=== PATIENT | male | born 1980 | race Caucasian/White ===

== ENCOUNTER 2017-08-06 15:07 | Emergency (ER) | payer OTHER ==
--- NOTE | 2017-08-06 16:16 | ER Document Report ---
ED Medical Screen (RME) - General Chief Complaint: Back Pain Stated Complaint: BACK PAIN Time Seen by Provider: 08/06/17 15:20 Mode of Arrival: Wheelchair Information source: Patient Notes: 36-year-old male history of low back pain presents with complaints of urinary incontinence on . Patient notes he was rolling over in bed felt a few popping sensations in his back and then urinated on himself. Patient denies any other such symptoms complaints Patient sent in by [facility] for evaluation I have greeted and performed a rapid initial assessment of this patient. A comprehensive ED assessment and evaluation of the patient, analysis of test results and completion of the medical decision making process will be conducted by additional ED providers. PHYSICAL EXAMINATION: GENERAL: Well-appearing, well-nourished and in no acute distress. HEAD: Atraumatic, normocephalic. EYES: Pupils equal round extraocular movements intact, conjunctiva are normal. ENT: Nares patent NECK: Normal range of motion LUNGS: No respiratory distress Musculoskeletal: Normal range of motion NEUROLOGICAL: Normal speech, normal gait. PSYCH: Normal mood, normal affect. SKIN: Warm, Dry, normal turgor, no rashes or lesions noted. TRAVEL OUTSIDE OF THE [place] IN LAST 30 DAYS: No - Related Data Allergies/Adverse Reactions: No Known Allergies Allergy (Unverified 08/06/17 15:14) Past Medical History - Social History Frequency of alcohol use: 2 beer/week Drug Abuse: None Renal/ Medical History: Denies: Hx Peritoneal Dialysis Physical Exam - Vital signs Vitals: Temp Pulse Resp BP Pulse Ox 98.1 F 77 20 114/72 97 08/06/17 15:15 08/06/17 15:15 08/06/17 15:15 08/06/17 15:15 08/06/17 15:15 Course - Vital Signs Vital signs: Temp Pulse Resp BP Pulse Ox 98.1 F 77 20 114/72 97 08/06/17 15:15 08/06/17 15:15 08/06/17 15:15 08/06/17 15:15 08/06/17 15:15
--- NOTE | 2017-08-06 17:05 | RADIOLOGY REPORT (SQ) ---
EXAM DESCRIPTION: MRI LUMBAR SPINE WITHOUT COMPLETED DATE/TIME: 08/06/2017 4:44 pm REASON FOR STUDY: urinary incontinence, back pain COMPARISON: None. TECHNIQUE: Sagittal and Axial imaging includes T1, T2, STIR and gradient echo sequences. Coronal T2/ HASTE imaging. LIMITATIONS: Interpretation was performed in the absence of comparison radiographs. FINDINGS: VISUALIZED UPPER ABDOMEN: Limited evaluation. No acute or suspicious findings suggested. SEGMENTATION: No transitional anatomy. The lowest well-developed disc space is labeled L5-S1. ALIGNMENT: Anatomic. VERTEBRAE: Intact. BONE MARROW: Normal. No marrow replacement or reactive changes. DISC SIGNAL: Trace disc desiccation and loss of height is seen at the L4/5 level. The remaining inte rvertebral disc heights and signal are normal. POSTERIOR ELEMENTS: Generally intact. No pars defect evident. HARDWARE: None in the spine. CORD AND CONUS: Normal in size and signal intensity. Conus at the appropriate level. SOFT TISSUES: No aortic aneurysm seen. No bulky retroperitoneal adenopathy or mass. No paraspinal mas s or fluid. L1-L2: No significant spinal stenosis or exit foraminal stenosis. L2-L3: No significant spinal stenosis or exit foraminal stenosis. L3-L4: No significant spinal stenosis or exit foraminal stenosis. L4-L5: Trace broad-based posterior disc bulge asymmetric to the left resulting mild left neural mihir inal narrowing without demonstrated nerve root contact. Concomitant mild facet arthropathy at this l evel. The central canal and right neural foramen remain widely patent. L5-S1: No significant spinal stenosis or exit foraminal stenosis. LOWER THORACIC: Incompletely imaged. No stenosis seen. SACRUM: Visualized upper sacrum intact. OTHER: No other significant findings. IMPRESSION: Mild L4/5 spondylotic change without demonstrated nerve root contact. TECHNICAL DOCUMENTATION: JOB ID: [id number] [employer]- All Rights Reserved Reading location - IP/workstation name: [employer]
[2017-08-06] MEDS ORDERED: KETOROLAC TROMETHAMINE 60 MG/2 ML SDV IM ONE (17:51)
--- NOTE | 2017-08-06 17:54 | ER Document Report ---
ED General Pain - General Chief Complaint: Back Pain Stated Complaint: BACK PAIN Time Seen by Provider: 08/06/17 15:20 Mode of Arrival: Wheelchair Notes: 36-year-old male. History of low back pain. Followed by the [facility]. Began having worsening low back pain. Had difficulty urinating and then urinary incontinence. No bowel incontinence. No numbness of the lower extremities. Was sent here for possible cauda equina and evaluation for possible MRI today. Denies any fever, chills, sweats. Denies any other issues at this time. TRAVEL OUTSIDE OF THE [place] IN LAST 30 DAYS: No - HPI Onset/Duration: Gradual, Worse - Related Data Allergies/Adverse Reactions: No Known Allergies Allergy (Unverified 08/06/17 15:14) Past Medical History - General Information source: Patient - Social History Smoking Status: Never Smoker Frequency of alcohol use: 2 beer/week Drug Abuse: None Lives with: Spouse/Significant other Family History: Reviewed & Not Pertinent Patient has suicidal ideation: No Patient has homicidal ideation: No Renal/ Medical History: Denies: Hx Peritoneal Dialysis Review of Systems - Review of Systems Constitutional: No symptoms reported EENT: No symptoms reported Cardiovascular: No symptoms reported Respiratory: No symptoms reported Gastrointestinal: No symptoms reported Genitourinary: No symptoms reported Male Genitourinary: No symptoms reported Musculoskeletal: Back pain. denies: Joint pain, Joint swelling, Muscle pain, Muscle stiffness Skin: No symptoms reported Hematologic/Lymphatic: No symptoms reported Neurological/Psychological: No symptoms reported. denies: Confusion, Weakness, Lost consciousness, Numbness Physical Exam - Vital signs Vitals: Temp Pulse Resp BP Pulse Ox 98.1 F 77 20 114/72 97 08/06/17 15:15 08/06/17 15:15 08/06/17 15:15 08/06/17 15:15 08/06/17 15:15 Interpretation: Normal - General General appearance: Appears well, Alert - HEENT Head: Normocephalic, Atraumatic Eyes: Normal Pupils: PERRL - Respiratory Respiratory status: No respiratory distress Chest status: Nontender Breath sounds: Normal Chest palpation: Normal - Cardiovascular Rhythm: Regular Heart sounds: Normal auscultation Murmur: No - Abdominal Inspection: Normal Distension: No distension Bowel sounds: Normal Tenderness: Nontender Organomegaly: No organomegaly - Rectal Tenderness: No Notes: Sensation intact, tone intact - Back Back: Normal, Nontender - Extremities General upper extremity: Normal inspection, Nontender, Normal color, Normal ROM , Normal temperature General lower extremity: Normal inspection, Nontender, Normal color, Normal ROM , Normal temperature, Normal weight bearing. No: Hong's sign Notes: Mild straight leg raise on the right - Neurological Neuro grossly intact: Yes Cognition: Normal Orientation: AAOx4 Corona Coma Scale Eye Opening: Spontaneous Corona Coma Scale Verbal: Oriented Corona Coma Scale Motor: Obeys Commands Corona Coma Scale Total: 15 Speech: Normal Motor strength normal: LUE, RUE, LLE, RLE Sensory: Normal - Psychological Associated symptoms: Normal affect, Normal mood - Skin Skin Temperature: Warm Skin Moisture: Dry Skin Color: Normal Course - Re-evaluation Re-evalutation: 08/06/17 17:51 Lumbar Spine MRI 08/06/17 15:21 IMPRESSION: Mild L4/5 spondylotic change without demonstrated nerve root contact. Patient does not have any evidence on physical exam or MRI of cauda equina syndrome. Has good sensation perirectally and normal rectal tone. We will give him information in regards to follow-up. Patient will need to be seen more likely by technical training specialist for pain management. We will provide referral. - Vital Signs Vital signs: Temp Pulse Resp BP Pulse Ox 99.0 F 59 L 20 120/76 99 08/06/17 18:35 08/06/17 18:35 08/06/17 15:15 08/06/17 18:35 08/06/17 18:35 Discharge - Discharge Clinical Impression: Low back pain Qualifiers: Chronicity: acute Back pain laterality: unspecified Sciatica presence: with sciatica Sciatica laterality: sciatica of right side Qualified Code(s): M54.41 - Lumbago with sciatica, right side Condition: Stable Disposition: HOME, SELF-CARE Instructions: Low Back Pain ([facility]) Referrals: KIM GRIFFIN MD [ASSOCIATE] - Follow up in 1 week Tucker Valencia [Other] - Follow up in 3-5 days
[2017-08-06 18:37] VITALS: BP 120/76
== END 2017-08-06 18:48 | disposition home or self-care (01) ==
LOC: ER 15:07
DX: M54.41 Lumbago with sciatica, right side (principal); R32 Unspecified urinary incontinence
CPT/HCPCS: 99283; 96372; 72148; J1885

== ENCOUNTER 2017-12-23 15:38 | Emergency (ER) | payer OTHER ==
[2017-12-23 15:49] VITALS: BP 110/75
[2017-12-23] MEDS ORDERED: FENTANYL CITRATE INJ/PF 100 MCG/2 ML AMPUL IM ONE ×2 (16:23→18:23)
[2017-12-23] MEDS ORDERED: PROMETHAZINE HCL INJ 50 MG/1 ML VIAL IM PRN (16:24)
--- NOTE | 2017-12-23 16:27 | ER Document Report ---
ED Headache - General Chief Complaint: Headache >24 hrs old Stated Complaint: HEADACHE Time Seen by Provider: 12/23/17 16:23 Mode of Arrival: Ambulatory Information source: Patient Notes: Chief complaint: Headache History of complain:( obtained from----patient) 37 years old male with a history of migraine headache presents today with another onset of headache since yesterday has taken Imitrex total of 4 tablets without improvement. Associated with nausea no vomiting. No focal weakness numbness tingling sensation. Had photophobia. Onset: As above Duration: 2 days Severity: Moderate to severe Quality: Sharp Context: History of migraine Exacerbating factor and relieving factors: Light REVIEW OF SYSTEMS: CONSTITUTIONAL : Denies fever, chills, or sweats. Denies recent illness. EENT: Denies eye, ear, throat, or mouth pain or symptoms. Denies nasal or sinus congestion or discharge. Denies throat, tongue, or mouth swelling or difficulty swallowing. CARDIOVASCULAR: Denies chest pain. Denies palpitations or racing or irregular heart beat. Denies ankle edema. RESPIRATORY: Denies cough, cold, or chest congestion. Denies shortness of breath, difficulty breathing, or wheezing. GASTROINTESTINAL: Denies distention. Denies nausea, vomiting, or diarrhea. Denies blood in vomitus, stools, or per rectum. Denies black, tarry stools. Denies constipation. GENITOURINARY: Denies difficulty urinating, painful urination, burning, frequency, blood in urine, or discharge. FEMALE GENITOURINARY: Denies vaginal bleeding, heavy or abnormal periods, irregular periods. Denies vaginal discharge or odor. MUSCULOSKELETAL: Denies back or neck pain or stiffness. Denies joint pain or swelling. SKIN: Denies rash, lesions or sores. HEMATOLOGIC : Denies easy bruising or bleeding. LYMPHATIC: Denies swollen, enlarged glands. NEUROLOGICAL: Denies confusion or altered mental status. Denies passing out or loss of consciousness. Denies dizziness or lightheadedness. Denies headache. Denies weakness or paralysis or loss of use of either side. Denies problems with gait or speech. Denies sensory loss, numbness, or tingling. Denies seizures. PSYCHIATRIC: Denies anxiety or stress. Denies depression, suicidal ideation, or homicidal ideation. ALL OTHER SYSTEMS REVIEWED AND NEGATIVE. PHYSICAL EXAMINATION: GENERAL: Well-appearing, well-nourished and in no acute distress. HEAD: Atraumatic, normocephalic. EYES: Pupils equal round and reactive to light, extraocular movements intact, conjunctiva are normal. ENT: Nares patent, oropharynx clear without exudates. Moist mucous membranes. NECK: Normal range of motion, supple without lymphadenopathy LUNGS: Breath sounds clear to auscultation bilaterally and equal. No wheezes rales or rhonchi. HEART: Regular rate and rhythm without murmurs ABDOMEN: Soft, nontender, nondistended abdomen. No guarding, no rebound. No masses appreciated. Examination of genitals-deferred Musculoskeletal: Normal range of motion, no pitting or edema. No cyanosis. NEUROLOGICAL: Cranial nerves grossly intact. Normal speech, normal gait. Normal sensory, motor exams PSYCH: Normal mood, normal affect. SKIN: Warm, Dry, normal turgor, no rashes or lesions noted. Dictation was performed using [employer] voice recognition software TRAVEL OUTSIDE OF THE [place] IN LAST 30 DAYS: No - HPI Patient complains to provider of: "Migraine" Notes: Dictated - Related Data Allergies/Adverse Reactions: No Known Allergies Allergy (Unverified 08/06/17 15:14) Past Medical History - Social History Smoking Status: Current Every Day Smoker Frequency of alcohol use: None Drug Abuse: None Lives with: Family Family History: Reviewed & Not Pertinent Patient has suicidal ideation: No Patient has homicidal ideation: No Renal/ Medical History: Denies: Hx Peritoneal Dialysis Review of Systems - Review of Systems Notes: Dictated Physical Exam - Vital signs Vitals: Temp Pulse Resp BP Pulse Ox 98.3 F 63 18 110/75 98 12/23/17 15:48 12/23/17 15:48 12/23/17 15:48 12/23/17 15:48 12/23/17 15:48 - Notes Notes: Dictated Course - Re-evaluation Re-evalutation: 12/23/17 16:26 Given fentanyl and promethazine - Vital Signs Vital signs: Temp Pulse Resp BP Pulse Ox 98.3 F 63 18 110/75 98 12/23/17 15:48 12/23/17 15:48 12/23/17 15:48 12/23/17 15:48 12/23/17 15:48 Discharge - Discharge Clinical Impression: Migraine headache Qualifiers: Migraine type: with aura Status migrainosus presence: without status migrainosus Intractability: not intractable Qualified Code(s): G43.109 - Migraine with aura, not intractable, without status migrainosus Disposition: HOME, SELF-CARE Instructions: Headache ([facility])
[2017-12-23] MEDS ORDERED: PROCHLORPERAZINE EDISYLATE INJ 10 MG/2 ML VIAL IM ONE (18:52)
== END 2017-12-23 19:07 | disposition home or self-care (01) ==
LOC: ER 15:38
DX: G43.109 Migraine with aura, not intractable, without status migrainosus (principal); F17.200 Nicotine dependence, unspecified, uncomplicated
CPT/HCPCS: 99283; 96372; J3010; J0780

== ENCOUNTER 2018-07-10 13:37 | Emergency (ER) | payer OTHER ==
[2018-07-10] MEDS ORDERED: IBUPROFEN 800 MG TABLET PO ONE (14:54)
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
[2018-07-10 16:04] VITALS: BP 134/79
== END 2018-07-10 16:02 | disposition home or self-care (01) ==
LOC: ER 13:37
DX: M54.5 Low back pain (principal); M12.88 Other specific arthropathies, not elsewhere classified, other specified site; V89.2XXA Person injured in unspecified motor-vehicle accident, traffic, initial encounter; F17.200 Nicotine dependence, unspecified, uncomplicated
CPT/HCPCS: 72110; 99283